=== PATIENT | female | born 1960 | race Caucasian/White ===

== ENCOUNTER 2018-06-15 01:15 | Observation (INO) | payer OTHER ==
[2018-06-15] VITALS (12 sets, daily range): BP systolic 104–156; BP diastolic 60–76; PULSE 65–90; RESP 18–20
[~2018-06-15] VITALS: Ht 167.4 cm; Wt 81.6 kg
[2018-06-15] MEDS ORDERED: CHOL500062 PO (02:51)
[2018-06-15] MEDS ORDERED: OMEG1CAP17 PO (02:51)
[2018-06-15] MEDS ORDERED: ENAL5TAB75 PO (02:51)
[2018-06-15] MEDS ORDERED: OMEP40CA6 PO (02:51)
[2018-06-15] MEDS ORDERED: ACET-2047 PO (02:51)
[2018-06-15] MEDS ORDERED: ATOR40TA68 PO (02:51)
[2018-06-15] MEDS ORDERED: NITR0.4T39 SL (02:51)
[2018-06-15] MEDS ORDERED: ASPI-817 PO (02:51)
[2018-06-15] MEDS ORDERED: ACETAMINOPHEN 325 MG TAB PO PRN ×2 (05:00)
[2018-06-15] MEDS ORDERED: NITROGLYCERIN (SL) 0.4 MG TAB SL PRN (05:00)
[2018-06-15] MEDS ORDERED: NACL 0.9% 3 ML SYG IV SCH (05:00)
[2018-06-15] MEDS ORDERED: HYDROCODONE/APAP (5/325) TAB PO PRN (05:00)
[2018-06-15] MEDS ORDERED: ALBUTEROL/IPRATROPIUM (NEB) 3 ML AMP HHN PRN (05:00)
[2018-06-15] MEDS ORDERED: ONDANSETRON 4 MG INJ IV PRN (05:00)
[2018-06-15] MEDS: PANTOPRAZOLE (EC) 40 MG TAB PO SCH (06:04)
--- NOTE | 2018-06-15 06:33 | HP ---
Date/Time of Note Date/Time of Note DATE: 06/15/18 TIME: 06:31 Assessment/Plan VTE Prophylaxis Risk score (from Nsg)>0 risk: 3 SCD applied (from Nsg): Yes Pharmacological prophylaxis: heparin Lines/Catheters IV Catheter Type (from Nrsg): Saline Lock Urinary Cath still in place: No Assessment/Plan Assessment/Plan 1. Chest pain: Rule out ACS -Supplemental oxygen, aspirin, statin, beta-shahzad. As needed nitro -Trend troponin -2D echo -Twelve-lead EKG -Cardiology consult -A1c, fasting lipid and TSH in a.m. 2. History of CVA, with right MCA thrombectomy -Aspirin and statin Result Diagram: 06/15/18 0541 Results 24hrs Laboratory Tests Test 06/15/18 05:41 White Blood Count 7.0 Red Blood Count 5.08 Hemoglobin 13.3 Hematocrit 41.6 Mean Corpuscular Volume 81.9 L Mean Corpuscular Hemoglobin 26.2 L Mean Corpuscular Hemoglobin Concent 32.0 Red Cell Distribution Width 13.1 Platelet Count 239 Mean Platelet Volume 10.6 H Immature Granulocytes % 0.100 Neutrophils % 54.6 Lymphocytes % 35.7 Monocytes % 7.3 Eosinophils % 1.7 Basophils % 0.6 Nucleated Red Blood Cells % 0.0 Immature Granulocytes # 0.010 Neutrophils # 3.8 Lymphocytes # 2.5 Monocytes # 0.5 Eosinophils # 0.1 Basophils # 0.0 Nucleated Red Blood Cells # 0.0 HPI/ROS Admit Date/Time Admit Date/Time Jun 15, 2018 at 02:04 Hx of Present Illness This is a 4-year-old female with a history of hypertension and CVA with history of right MCA thrombectomy. Patient presented to an outside hospital complaining of chest pain. The chest pain mainly left-sided, with occasional associated shortness of breath. At the outside facility EKG and troponin negative. Patient was transferred to [facility] for insurance reason. PMH/Family/Social Past Medical History Past Surgical History Past Surgical Hx: other (see hpi) Family History Significant Family History: other Social History Smoking Status: Unknown if ever smoked Drug Use: other Exam Constitutional: other (no acute distress) Eyes: EOMI, PERRL Neck: supple Respiratory: normal air movement Cardiovascular: nl pulses Gastrointestinal: soft Extremities: normal pulses Medications Current Medications IV Flush (NS 3 ml) 3 ml PER PROTOCOL IV ; Start 06/15/18 at 05:00 Ondansetron HCl (Zofran Inj) 4 mg Q6H PRN IV NAUSEA/VOMITING; Start 06/15/18 at 05:00 Aspirin (Aspirin) 81 mg DAILY PO ; Start 06/15/18 at 09:00 Nitroglycerin (Nitroglycerin (Sl Tab) 0.4 Mg) 1 tab Q5M PRN SL .CHEST PAIN; Start 06/15/18 at 05:00 Acetaminophen/ Hydrocodone Bitart ([place] (5/325)) 1 tab Q6H PRN PO .PAIN 4-6; Start 06/15/18 at 05:00 Enoxaparin Sodium (Lovenox) 40 mg DAILY SC ; Start 06/15/18 at 09:00 Albuterol/ Ipratropium (Duoneb) 3 ml Q2H RESP THERAPY PRN HHN SHORTNESS OF BREATH; Start 06/15/18 at 05:00 Metoprolol Tartrate (Lopressor) 25 mg BID PO ; Start 06/15/18 at 09:00 Acetaminophen (Tylenol Tab) 650 mg Q6H PRN PO MILD PAIN(1-3)OR ELEVATED TEMP; Start 06/15/18 at 05:00 Atorvastatin Calcium (Lipitor) 40 mg QHS PO ; Start 06/15/18 at 21:00 Enalapril Maleate (Vasotec) 5 mg DAILY PO ; Start 06/15/18 at 09:00 Fish Oil (Fish Oil) 1,000 mg DAILY PO ; Start 06/15/18 at 09:00 Pantoprazole (Protonix Tab) 40 mg DAILY@06 PO Last administered on 06/15/18at 06:04; Admin Dose 40 MG; Start 06/15/18 at 06:00 Coded Allergies: Estrogens (Verified Allergy, Intermediate, 06/15/18) honey (Verified Allergy, Intermediate, 06/15/18) peanut (Verified Allergy, Intermediate, 06/15/18) pollen extracts (Verified Allergy, Intermediate, 06/15/18) Social History Smoking Status: Never smoker Exam/Review of Systems Vital Signs Vitals Vital Signs Date Temp Pulse Resp B/P (MAP) Pulse Ox O2 O2 Flow FiO2 Time Delivery Rate 06/15/18 97.8 89 20 124/70 96 04:00 (88) 06/15/18 Room Air 02:15 PADMAJA ASIF MD Jun 15, 2018 06:33
[2018-06-15] MEDS: ASPIRIN 81 MG TAB PO SCH (08:12)
[2018-06-15] MEDS: FISH OIL 1,000 MG CAP PO SCH (08:12)
[2018-06-15] MEDS: METOPROLOL 25 MG TAB PO SCH ×2 (08:13→21:44)
[2018-06-15] MEDS: ENOXAPARIN 40 MG/0.4 ML SYG SC SCH (08:29)
[2018-06-15] MEDS: ENALAPRIL 5 MG TAB PO SCH (12:23)
--- NOTE | 2018-06-15 14:56 | PN ---
Date/Time of Note Date/Time of Note DATE: 06/15/18 TIME: 14:48 Assessment/Plan VTE Prophylaxis Risk score (from Ns)>0 risk: 3 SCD applied (from Ns): Yes Pharmacological prophylaxis: LMWH Lines/Catheters IV Catheter Type (from Nrsg): Saline Lock Urinary Cath still in place: No Assessment/Plan Assessment/Plan 1. Chest pain: Rule out ACS, follow up with troponin, echo, and cardiology consultation 2. History of CVA, with right MCA thrombectomy, on aspirin and statin 3. HTN, controlled 4. DVT prophylaxis: lovenox Result Diagram: 06/15/18 0541 06/15/18 0541 Results 24hrs Laboratory Tests Test 06/15/18 05:41 06/15/18 10:20 White Blood Count 7.0 Red Blood Count 5.08 Hemoglobin 13.3 Hematocrit 41.6 Mean Corpuscular Volume 81.9 L Mean Corpuscular Hemoglobin 26.2 L Mean Corpuscular Hemoglobin Concent 32.0 Red Cell Distribution Width 13.1 Platelet Count 239 Mean Platelet Volume 10.6 H Immature Granulocytes % 0.100 Neutrophils % 54.6 Lymphocytes % 35.7 Monocytes % 7.3 Eosinophils % 1.7 Basophils % 0.6 Nucleated Red Blood Cells % 0.0 Immature Granulocytes # 0.010 Neutrophils # 3.8 Lymphocytes # 2.5 Monocytes # 0.5 Eosinophils # 0.1 Basophils # 0.0 Nucleated Red Blood Cells # 0.0 Sodium Level 144 Potassium Level 4.0 Chloride Level 106 Carbon Dioxide Level 27 Anion Gap 11 Blood Urea Nitrogen 15 Creatinine 0.67 Est Glomerular Filtrat Rate mL/min > 60 Glucose Level 96 Hemoglobin A1c 5.6 Calcium Level 9.7 Magnesium Level 2.1 Total Bilirubin 0.6 Direct Bilirubin 0.00 Indirect Bilirubin 0.6 Aspartate Amino Transf (AST/SGOT) 25 Alanine Aminotransferase (ALT/SGPT) 27 Alkaline Phosphatase 86 Creatine Kinase 66 64 Creatine Kinase Index 0.3 0.3 Creatinine Kinase MB (Mass) < 0.22 < 0.22 Troponin I < 0.012 < 0.012 Total Protein 7.1 Albumin 4.3 Globulin 2.80 Albumin/Globulin Ratio 1.53 Triglycerides Level 144 Cholesterol Level 126 LDL Cholesterol, Calculated 60 HDL Cholesterol 37 Cholesterol/HDL Ratio 3.4 Thyroid Stimulating Hormone (TSH) 0.474 Subjective 24 Hr Interval Summary Free Text/Dictation left upper chest constant pain Exam/Review of Systems Exam Vitals Vital Signs Date Temp Pulse Resp B/P (MAP) Pulse Ox O2 O2 Flow FiO2 Time Delivery Rate 06/15/18 73 12:55 06/15/18 98.2 18 109/60 91 11:32 (76) 06/15/18 Room Air 02:15 Intake and Output 06/14/18 06/14/18 06/15/18 1414:59 22:59 06:59 IntakeIntake Total 300 ml BalanceBalance 300 ml Constitutional: alert, well developed Psych: no complaints, nl mood/affect Head: normocephalic, atraumatic Eyes: nl conjunctiva, EOMI, nl lids, PERRL ENMT: nl external ears & nose, nl lips & teeth, nl nasal mucosa & septum Neck: supple, non-tender Respiratory: clear to auscultation, normal air movement; No congested cough, No crackles/rales, No diminished breath sounds, No intercostal retraction, No labored breathing, No respirations, No tactile fremitus, No wheezing, No other Cardiovascular: regular rate and rhythm, nl pulses; No bruits, No diastolic murmur, No edema, No gallop, No irregular rhythm, No jugular venous distention (JVD), No murmurs/extra sounds, No rub, No systolic murmur, No S3, No S4, No other Gastrointestinal: soft, nl liver, spleen, non-tender Musculoskeletal: nl extremities to inspection Extremities: normal pulses; No calf tenderness, No cyanosis, No clubbing, No edema, No pitting pedal edema, No palpable cord, No tenderness, No other Neurological: [employer] II-XII intact, nl mental status, nl speech, nl strength Results Results 24hrs Laboratory Tests Test 06/15/18 05:41 06/15/18 10:20 White Blood Count 7.0 Red Blood Count 5.08 Hemoglobin 13.3 Hematocrit 41.6 Mean Corpuscular Volume 81.9 L Mean Corpuscular Hemoglobin 26.2 L Mean Corpuscular Hemoglobin Concent 32.0 Red Cell Distribution Width 13.1 Platelet Count 239 Mean Platelet Volume 10.6 H Immature Granulocytes % 0.100 Neutrophils % 54.6 Lymphocytes % 35.7 Monocytes % 7.3 Eosinophils % 1.7 Basophils % 0.6 Nucleated Red Blood Cells % 0.0 Immature Granulocytes # 0.010 Neutrophils # 3.8 Lymphocytes # 2.5 Monocytes # 0.5 Eosinophils # 0.1 Basophils # 0.0 Nucleated Red Blood Cells # 0.0 Sodium Level 144 Potassium Level 4.0 Chloride Level 106 Carbon Dioxide Level 27 Anion Gap 11 Blood Urea Nitrogen 15 Creatinine 0.67 Est Glomerular Filtrat Rate mL/min > 60 Glucose Level 96 Hemoglobin A1c 5.6 Calcium Level 9.7 Magnesium Level 2.1 Total Bilirubin 0.6 Direct Bilirubin 0.00 Indirect Bilirubin 0.6 Aspartate Amino Transf (AST/SGOT) 25 Alanine Aminotransferase (ALT/SGPT) 27 Alkaline Phosphatase 86 Creatine Kinase 66 64 Creatine Kinase Index 0.3 0.3 Creatinine Kinase MB (Mass) < 0.22 < 0.22 Troponin I < 0.012 < 0.012 Total Protein 7.1 Albumin 4.3 Globulin 2.80 Albumin/Globulin Ratio 1.53 Triglycerides Level 144 Cholesterol Level 126 LDL Cholesterol, Calculated 60 HDL Cholesterol 37 Cholesterol/HDL Ratio 3.4 Thyroid Stimulating Hormone (TSH) 0.474 Medications Medication Current Medications IV Flush (NS 3 ml) 3 ml PER PROTOCOL IV ; Start 06/15/18 at 05:00 Ondansetron HCl (Zofran Inj) 4 mg Q6H PRN IV NAUSEA/VOMITING; Start 06/15/18 at 05:00 Aspirin (Aspirin) 81 mg DAILY PO Last administered on 06/15/18at 08:12; Admin Dose 81 MG; Start 06/15/18 at 09:00 Nitroglycerin (Nitroglycerin (Sl Tab) 0.4 Mg) 1 tab Q5M PRN SL .CHEST PAIN; Start 06/15/18 at 05:00 Acetaminophen/ Hydrocodone Bitart ([place] (5/325)) 1 tab Q6H PRN PO .PAIN 4-6; Start 06/15/18 at 05:00 Enoxaparin Sodium (Lovenox) 40 mg DAILY SC Last administered on 06/15/18at 08:29; Admin Dose 40 MG; Start 06/15/18 at 09:00 Albuterol/ Ipratropium (Duoneb) 3 ml Q2H RESP THERAPY PRN HHN SHORTNESS OF BREATH; Start 06/15/18 at 05:00 Metoprolol Tartrate (Lopressor) 25 mg BID PO Last administered on 06/15/18at 08:13; Admin Dose 25 MG; Start 06/15/18 at 09:00 Acetaminophen (Tylenol Tab) 650 mg Q6H PRN PO MILD PAIN(1-3)OR ELEVATED TEMP; Start 06/15/18 at 05:00 Atorvastatin Calcium (Lipitor) 40 mg QHS PO ; Start 06/15/18 at 21:00 Enalapril Maleate (Vasotec) 5 mg DAILY PO ; Start 06/15/18 at 09:00 Fish Oil (Fish Oil) 1,000 mg DAILY PO Last administered on 06/15/18at 08:12; Admin Dose 1,000 MG; Start 06/15/18 at 09:00 Pantoprazole (Protonix Tab) 40 mg DAILY@06 PO Last administered on 06/15/18at 06:04; Admin Dose 40 MG; Start 06/15/18 at 06:00 JLUIS CHAO MD Jun 15, 2018 14:56
--- NOTE | 2018-06-15 17:33 | RADRPT ---
Echocardiogram Report Patient Name: AZEB KLEINPatient ID: [id number] : 1960 (58y )Study Date: 06/15/2018 10:04:37 AM Gender: FAccession #: [id number] Tech: JASMEET Location: Ref.Physician: PADMAJA ASIF Height(Cm): BSA: Weight(Kg): Quality: GoodAccount #: Procedures: Echocardiographic Report: Transthoracic echocardiogram with complete 2D, M-Mode, and doppler examination. Indications: Chest Pain. Measurements: 2D/M Mode Doppler Measurement Value Normal Range Measurement Value Normal Range LVIDd 2D 4.2 [ 3.8 - 5.2 ] cm JOHANA Vmax 2.1 [ 2.0 - 4.0 ] cm2 LVIDs 2D 2.9 [ 2.2 - 3.5 ] cm AV Mean Roshan 0.7 [ 70.0 - 90.0 ] cm/sec LVPWd 2D 1.1 [ 0.6 - 0.9 ] cm AV Mean PG 2.0 [ 2.0 - 4.0 ] mmHg IVSd 2D 1.1 [ 0.6 - 0.9 ] cm AV Peak Roshan 1.0 [ 100.0 - 170.0 ] cm/sec IVS/LVPW 2D 1.0 ratio AV Peak PG 4.0 [ 2.0 - 9.0 ] mmHg LVOT Area 2.8 cm2 AV VTI 19.3 cm LVOT Peak Roshan 0.8 [ 70.0 - 110.0 ] cm/sec LVOT Peak PG 2.0 [ 2.0 - 6.0 ] mmHg MV E Peak Roshan 0.4 [ 60.0 - 130.0 ] cm/sec MV A Peak Roshan 0.5 [ 100.0 - 120.0 ] cm/sec MV E/A 0.7 [ 0.8 - 1.5 ] ratio MV Decel Time 292 [ 104 - 258 ] msec Lat E` Roshan 0.1 [ 10.0 - 15.0 ] cm/sec Med E` Roshan 0.0 cm/sec MV E/A 0.7 [ 0.8 - 1.5 ] ratio TR Peak Roshan 1.9 [ 100.0 - 280.0 ] cm/sec TR Peak PG 15.0 mmHg PV Peak Roshan 0.6 [ 40.0 - 80.0 ] cm/sec PV Peak PG 1.0 mmHg Findings: Left Ventricle: Normal left ventricular systolic function. Normal left ventricular cavity size. Normal left ventricular wall thickness. Ejection fraction is visually estimated at 55-60 %. Tissue Doppler/Mitral Doppler indices are consistent with impaired relaxation (Stage I diastolic dysfunction). Right Ventricle: Normal right ventricular size. Normal right ventricular systolic function. Left Atrium: The left atrium is normal in size. Right Atrium: The right atrium is normal in size. Mitral Valve: Normal appearance and function of the mitral valve with trace physiologic regurgitation. Mild mitral annular calcification. Aortic Valve: Normal appearance of the aortic valve. No significant aortic stenosis or insufficiency. Tricuspid Valve: Normal appearance of the tricuspid valve. Estimated peak PA systolic pressure 20 mmHg. There is trace tricuspid regurgitation. Pulmonic Valve: Normal pulmonic valve appearance. There is trace pulmonic regurgitation. Pericardium: Normal pericardium with no significant pericardial effusion. Aorta: Normal aortic root. IVC: Normal size and normal respiratory collapse consistent with normal right atrial pressure. Conclusions: Normal left ventricular systolic function. Grade 1 diastolic dysfunction. Trace mitral, tricuspid, and pulmonic regurgitation. Normal pulmonary pressures. Electronically Signed By: Afia Oliveros 2018-06-15 17:32:12 PDT
--- NOTE | 2018-06-15 19:30 | CONS ---
Assessment/Plan Assessment/Plan Hospital Course (Demo Recall) 58 yo with acute chest pain, with recent CVA. Impression: Chest pain, atypical, lasting hours, with no ekg changes, no wall motion abnormalities, and normal troponins. Etiology is most likely gerd Chronic dyspnea since CVA Possible ASD Hypertension, with enalapril held for a sbp of 109 (!) Recommendations: Observe overnight Dr. Fulton to see patient in the am No indication for stress testing Monitor bp and I will clarify hold parameters Consultation Date/Type/Reason Admit Date/Time Jun 15, 2018 at 02:04 Date of Consultation: Jun 15, 2018 Type of Consult Cardiology Reason for Consultation chest pain Requesting Provider: SHEILA STARK Date/Time of Note DATE: 06/15/18 TIME: 19:22 Hx of Present Illness 58 yo with h/o CVA in 04/2018 presents with chest pain. Pain was all day yesterday, was a burning sensation, constant. Pain is still present to some degree but is much less. She has had this pain on and off, it occurred while she was in the hospital at [facility] with her CVA, and has recurred at home, but has not had any episodes this long. She took three nitroglycerin tablets at home with no improvement. Since the cva, she is tired, and more short of breath with exertion than before the CVA. She saw Dr. Roel Alfonso in the office a few weeks ago, son says that she was told she has an ASD and needs to have it closed. Also of note her bp has been high at times at home and associated with a fast heart rate. PCP is Aleks Waddell Constitutional: no complaints Eyes: no complaints ENT: no complaints Respiratory: shortness of breath Cardiovascular: chest pain, lightheadedness Gastrointestinal: no complaints Genitourinary: no complaints Musculoskeletal: no complaints Skin: no complaints Neurologic: dizziness Endocrine: no complaints Lymphatic: no complaints Psychological: no complaints Past Medical History Medical History: high cholesterol, hypertension, other (CVA 04/2018) Home Meds Reported Medications Acetaminophen* (Acetaminophen*) 650 Mg Tablet, 650 MG PO Q6H PRN for PAIN AND OR ELEVATED TEMP, #30 TAB 06/15/18 Cholecalciferol (Vitamin D3) (Vitamin D3) 5,000 Unit Tab.rapdis, 5000 UNIT PO DAILY 06/15/18 Nitroglycerin* (Nitrostat*) 0.4 Mg Tab.subl, 0.4 MG SL Q5MIN PRN for CHEST PAIN, BOTTLE 06/15/18 Omeprazole* (Omeprazole*) 40 Mg Capsule.dr, 40 MG PO DAILY, #30 CAP 06/15/18 [place]-3 Fatty Acids/Fish Oil (Fish Oil 1,000 mg Softgel) 1 Each Capsule, 1 EACH PO DAILY, CAP 06/15/18 Enalapril Maleate* (Vasotec*) 5 Mg Tablet, 5 MG PO DAILY, TAB 06/15/18 Atorvastatin* (Atorvastatin*) 40 Mg Tablet, 40 MG PO QHS, #30 TAB 06/15/18 Aspirin* (Aspirin* EC) 81 Mg Tablet.dr, 81 MG PO DAILY, TAB 06/15/18 Medications Current Medications IV Flush (NS 3 ml) 3 ml PER PROTOCOL IV ; Start 06/15/18 at 05:00 Ondansetron HCl (Zofran Inj) 4 mg Q6H PRN IV NAUSEA/VOMITING; Start 06/15/18 at 05:00 Aspirin (Aspirin) 81 mg DAILY PO Last administered on 06/15/18at 08:12; Admin Do se 81 MG; Start 06/15/18 at 09:00 Nitroglycerin (Nitroglycerin (Sl Tab) 0.4 Mg) 1 tab Q5M PRN SL .CHEST PAIN; Start 06/15/18 at 05:00 Acetaminophen/ Hydrocodone Bitart ([place] (5/325)) 1 tab Q6H PRN PO .PAIN 4-6; Start 06/15/18 at 05:00 Enoxaparin Sodium (Lovenox) 40 mg DAILY SC Last administered on 06/15/18at 08:29; Admin Dose 40 MG; Start 06/15/18 at 09:00 Albuterol/ Ipratropium (Duoneb) 3 ml Q2H RESP THERAPY PRN HHN SHORTNESS OF BREATH; Start 06/15/18 at 05:00 Metoprolol Tartrate (Lopressor) 25 mg BID PO Last administered on 06/15/18at 08:13; Admin Dose 25 MG; Start 06/15/18 at 09:00 Acetaminophen (Tylenol Tab) 650 mg Q6H PRN PO MILD PAIN(1-3)OR ELEVATED TEMP; Start 06/15/18 at 05:00 Atorvastatin Calcium (Lipitor) 40 mg QHS PO ; Start 06/15/18 at 21:00 Enalapril Maleate (Vasotec) 5 mg DAILY PO ; Start 06/15/18 at 09:00 Fish Oil (Fish Oil) 1,000 mg DAILY PO Last administered on 06/15/18at 08:12; Admin Dose 1,000 MG; Start 06/15/18 at 09:00 Pantoprazole (Protonix Tab) 40 mg DAILY@06 PO Last administered on 06/15/18at 06:04; Admin Dose 40 MG; Start 06/15/18 at 06:00 Allergies: Coded Allergies: Estrogens (Verified Allergy, Intermediate, 06/15/18) honey (Verified Allergy, Intermediate, 06/15/18) peanut (Verified Allergy, Intermediate, 06/15/18) pollen extracts (Verified Allergy, Intermediate, 06/15/18) Family History Significant Family History: no pertinent family hx Social History Alcohol Use: none Smoking Status: Never smoker Drug Use: none Exam/Review of Systems Vital Signs Vitals Vital Signs Date Temp Pulse Resp B/P (MAP) Pulse Ox O2 O2 Flow FiO2 Time Delivery Rate 06/15/18 65 16:12 06/15/18 97.9 18 104/60 95 15:40 (75) 06/15/18 Room Air 02:15 Intake and Output 06/14/18 06/14/18 06/15/18 1515:00 23:00 07:00 IntakeIntake Total 300 ml BalanceBalance 300 ml Exam Constitutional: alert, oriented, well developed, other Psych: no complaints, other (flat affect) Head: normocephalic, atraumatic Eyes: nl conjunctiva, EOMI, nl lids ENMT: nl external ears & nose Neck: No jvd, No bruits Respiratory: clear to auscultation, normal air movement Cardiovascular: regular rate and rhythm, nl pulses; No murmurs/extra sounds Gastrointestinal: soft, nl liver, spleen, non-tender Musculoskeletal: nl extremities to inspection Extremities: normal pulses Neurological: nl mental status, nl speech Skin: nl turgor Labs Result Diagram: 06/15/18 0541 06/15/18 0541 Results 24hrs Laboratory Tests Test 06/15/18 05:41 06/15/18 10:20 White Blood Count 7.0 Red Blood Count 5.08 Hemoglobin 13.3 Hematocrit 41.6 Mean Corpuscular Volume 81.9 L Mean Corpuscular Hemoglobin 26.2 L Mean Corpuscular Hemoglobin Concent 32.0 Red Cell Distribution Width 13.1 Platelet Count 239 Mean Platelet Volume 10.6 H Immature Granulocytes % 0.100 Neutrophils % 54.6 Lymphocytes % 35.7 Monocytes % 7.3 Eosinophils % 1.7 Basophils % 0.6 Nucleated Red Blood Cells % 0.0 Immature Granulocytes # 0.010 Neutrophils # 3.8 Lymphocytes # 2.5 Monocytes # 0.5 Eosinophils # 0.1 Basophils # 0.0 Nucleated Red Blood Cells # 0.0 Sodium Level 144 Potassium Level 4.0 Chloride Level 106 Carbon Dioxide Level 27 Anion Gap 11 Blood Urea Nitrogen 15 Creatinine 0.67 Est Glomerular Filtrat Rate mL/min > 60 Glucose Level 96 Hemoglobin A1c 5.6 Calcium Level 9.7 Magnesium Level 2.1 Total Bilirubin 0.6 Direct Bilirubin 0.00 Indirect Bilirubin 0.6 Aspartate Amino Transf (AST/SGOT) 25 Alanine Aminotransferase (ALT/SGPT) 27 Alkaline Phosphatase 86 Creatine Kinase 66 64 Creatine Kinase Index 0.3 0.3 Creatinine Kinase MB (Mass) < 0.22 < 0.22 Troponin I < 0.012 < 0.012 Total Protein 7.1 Albumin 4.3 Globulin 2.80 Albumin/Globulin Ratio 1.53 Triglycerides Level 144 Cholesterol Level 126 LDL Cholesterol, Calculated 60 HDL Cholesterol 37 Cholesterol/HDL Ratio 3.4 Thyroid Stimulating Hormone (TSH) 0.474 Imaging Imaging nsr at 72 bpm, borderline prolonged QT Echo with NSR, no wall motion abnormalities Medications Medications Current Medications IV Flush (NS 3 ml) 3 ml PER PROTOCOL IV ; Start 06/15/18 at 05:00 Ondansetron HCl (Zofran Inj) 4 mg Q6H PRN IV NAUSEA/VOMITING; Start 06/15/18 at 05:00 Aspirin (Aspirin) 81 mg DAILY PO Last administered on 06/15/18at 08:12; Admin Dose 81 MG; Start 06/15/18 at 09:00 Nitroglycerin (Nitroglycerin (Sl Tab) 0.4 Mg) 1 tab Q5M PRN SL .CHEST PAIN; Start 06/15/18 at 05:00 Acetaminophen/ Hydrocodone Bitart ([place] (5/325)) 1 tab Q6H PRN PO .PAIN 4-6; Start 06/15/18 at 05:00 Enoxaparin Sodium (Lovenox) 40 mg DAILY SC Last administered on 06/15/18at 08:29; Admin Dose 40 MG; Start 06/15/18 at 09:00 Albuterol/ Ipratropium (Duoneb) 3 ml Q2H RESP THERAPY PRN HHN SHORTNESS OF BREATH; Start 06/15/18 at 05:00 Metoprolol Tartrate (Lopressor) 25 mg BID PO Last administered on 06/15/18at 08:13; Admin Dose 25 MG; Start 06/15/18 at 09:00 Acetaminophen (Tylenol Tab) 650 mg Q6H PRN PO MILD PAIN(1-3)OR ELEVATED TEMP; Start 06/15/18 at 05:00 Atorvastatin Calcium (Lipitor) 40 mg QHS PO ; Start 06/15/18 at 21:00 Enalapril Maleate (Vasotec) 5 mg DAILY PO ; Start 06/15/18 at 09:00 Fish Oil (Fish Oil) 1,000 mg DAILY PO Last administered on 06/15/18at 08:12; Admin Dose 1,000 MG; Start 06/15/18 at 09:00 Pantoprazole (Protonix Tab) 40 mg DAILY@06 PO Last administered on 06/15/18at 06:04; Admin Dose 40 MG; Start 06/15/18 at 06:00 KENDALL MOORE Jun 15, 2018 19:30
[2018-06-15] MEDS ORDERED: ATORVASTATIN 40 MG TAB PO SCH (21:00)
[2018-06-15] MEDS: ATORVASTATIN 40 MG TAB PO SCH (21:39)
[2018-06-16] VITALS (11 sets, daily range): BP systolic 100–127; BP diastolic 58–71; PULSE 67–109; RESP 19–22
[2018-06-16] MEDS: PANTOPRAZOLE (EC) 40 MG TAB PO SCH (05:40)
[2018-06-16] MEDS: ASPIRIN 81 MG TAB PO SCH (08:17)
[2018-06-16] MEDS: FISH OIL 1,000 MG CAP PO SCH (08:17)
[2018-06-16] MEDS: METOPROLOL 25 MG TAB PO SCH ×2 (08:19→21:00)
[2018-06-16] MEDS: ENALAPRIL 5 MG TAB PO SCH (08:19)
[2018-06-16] MEDS: ENOXAPARIN 40 MG/0.4 ML SYG SC SCH (08:28)
--- NOTE | 2018-06-16 15:13 | PN ---
Date/Time of Note Date/Time of Note DATE: 06/16/18 TIME: 15:10 Assessment/Plan VTE Prophylaxis Risk score (from Ns)>0 risk: 3 SCD applied (from Ns): Yes Pharmacological prophylaxis: LMWH Lines/Catheters IV Catheter Type (from Nrs): Saline Lock Urinary Cath still in place: No Assessment/Plan Assessment/Plan 1. Chest pain, atypical with chest wall tenderness, likely musculoskeletal, negative troponin, follow up with cardiology 2. History of CVA, with right MCA thrombectomy, on aspirin and statin 3. HTN, controlled 4. DVT prophylaxis: lovenox Result Diagram: 06/16/1852606/16/18526 Results 24hrs Laboratory Tests Test 06/16/18 05:27 White Blood Count 6.9 Red Blood Count 5.12 Hemoglobin 13.4 Hematocrit 42.4 Mean Corpuscular Volume 82.8 Mean Corpuscular Hemoglobin 26.2 L Mean Corpuscular Hemoglobin Concent 31.6 L Red Cell Distribution Width 13.0 Platelet Count 255 Mean Platelet Volume 10.7 H Immature Granulocytes % 0.300 Neutrophils % 56.9 Lymphocytes % 31.6 Monocytes % 8.4 Eosinophils % 2.2 Basophils % 0.6 Nucleated Red Blood Cells % 0.0 Immature Granulocytes # 0.020 Neutrophils # 4.0 Lymphocytes # 2.2 Monocytes # 0.6 Eosinophils # 0.2 Basophils # 0.0 Nucleated Red Blood Cells # 0.0 Sodium Level 144 Potassium Level 3.8 Chloride Level 103 Carbon Dioxide Level 28 Anion Gap 13 Blood Urea Nitrogen 27 #H Creatinine 0.93 Est Glomerular Filtrat Rate mL/min > 60 Glucose Level 100 Calcium Level 9.7 Phosphorus Level 5.2 H Magnesium Level 2.1 Subjective 24 Hr Interval Summary Free Text/Dictation still has left upper chest pain, worse when she takes deep breath Exam/Review of Systems Exam Vitals Vital Signs Date Temp Pulse Resp B/P (MAP) Pulse Ox O2 O2 Flow FiO2 Time Delivery Rate 06/16/18 97.8 78 22 112/58 96 Room Air 12:40 (76) Intake and Output 06/15/18 06/15/18 06/16/18 1515:00 23:00 07:00 IntakeIntake Total 700 ml 400 ml BalanceBalance 700 ml 400 ml Constitutional: alert, oriented, well developed Psych: no complaints, nl mood/affect Head: normocephalic, atraumatic Eyes: nl conjunctiva, EOMI, nl lids, nl sclera, PERRL ENMT: nl external ears & nose, nl lips & teeth, nl nasal mucosa & septum Neck: supple, non-tender Respiratory: clear to auscultation, normal air movement; No congested cough, No crackles/rales, No diminished breath sounds, No intercostal retraction, No labored breathing, No respirations, No tactile fremitus, No wheezing, No other Cardiovascular: regular rate and rhythm, nl pulses; No bruits, No diastolic murmur, No edema, No gallop, No irregular rhythm, No jugular venous distention (JVD), No murmurs/extra sounds, No rub, No systolic murmur, No S3, No S4, No other Gastrointestinal: soft, nl liver, spleen, non-tender Musculoskeletal: nl extremities to inspection Extremities: normal pulses Neurological: WOOD [employer]OL [employer]ER II-XII intact, nl mental status, nl speech, nl strength Results Results 24hrs Laboratory Tests Test 06/16/18 05:27 White Blood Count 6.9 Red Blood Count 5.12 Hemoglobin 13.4 Hematocrit 42.4 Mean Corpuscular Volume 82.8 Mean Corpuscular Hemoglobin 26.2 L Mean Corpuscular Hemoglobin Concent 31.6 L Red Cell Distribution Width 13.0 Platelet Count 255 Mean Platelet Volume 10.7 H Immature Granulocytes % 0.300 Neutrophils % 56.9 Lymphocytes % 31.6 Monocytes % 8.4 Eosinophils % 2.2 Basophils % 0.6 Nucleated Red Blood Cells % 0.0 Immature Granulocytes # 0.020 Neutrophils # 4.0 Lymphocytes # 2.2 Monocytes # 0.6 Eosinophils # 0.2 Basophils # 0.0 Nucleated Red Blood Cells # 0.0 Sodium Level 144 Potassium Level 3.8 Chloride Level 103 Carbon Dioxide Level 28 Anion Gap 13 Blood Urea Nitrogen 27 #H Creatinine 0.93 Est Glomerular Filtrat Rate mL/min > 60 Glucose Level 100 Calcium Level 9.7 Phosphorus Level 5.2 H Magnesium Level 2.1 Medications Medication Current Medications IV Flush (NS 3 ml) 3 ml PER PROTOCOL IV ; Start 06/15/18 at 05:00 Ondansetron HCl (Zofran Inj) 4 mg Q6H PRN IV NAUSEA/VOMITING; Start 06/15/18 at 05:00 Aspirin (Aspirin) 81 mg DAILY PO Last administered on 06/16/18 08:17; Admin Dose 81 MG; Start 06/15/18 at 09:00 Nitroglycerin (Nitroglycerin (Sl Tab) 0.4 Mg) 1 tab Q5M PRN SL .CHEST PAIN; Start 06/15/18 at 05:00 Acetaminophen/ Hydrocodone Bitart ([place] (5/325)) 1 tab Q6H PRN PO .PAIN 4-6; Start 06/15/18 at 05:00 Enoxaparin Sodium (Lovenox) 40 mg DAILY SC Last administered on 06/16/18 08:28; Admin Dose 40 MG; Start 06/15/18 at 09:00 Albuterol/ Ipratropium (Duoneb) 3 ml Q2H RESP THERAPY PRN HHN SHORTNESS OF BREATH; Start 06/15/18 at 05:00 Metoprolol Tartrate (Lopressor) 25 mg BID PO Last administered on 06/16/18 08:19; Admin Dose 25 MG; Start 06/15/18 at 09:00 Acetaminophen (Tylenol Tab) 650 mg Q6H PRN PO MILD PAIN(1-3)OR ELEVATED TEMP; Start 06/15/18 at 05:00 Atorvastatin Calcium (Lipitor) 40 mg QHS PO Last administered on 06/15/18at 21:39; Admin Dose 40 MG; Start 06/15/18 at 21:00 Enalapril Maleate (Vasotec) 5 mg DAILY PO Last administered on 06/16/18 08:19; Admin Dose 5 MG; Start 06/15/18 at 09:00 Fish Oil (Fish Oil) 1,000 mg DAILY PO Last administered on 06/16/18 08:17; Admin Dose 1,000 MG; Start 06/15/18 at 09:00 Pantoprazole (Protonix Tab) 40 mg DAILY@06 PO Last administered on 06/16/18 05:40; Admin Dose 40 MG; Start 06/15/18 at 06:00 JLUIS CHAO MD Jun 16, 2018 15:13
--- NOTE | 2018-06-16 15:48 | CONS ---
Assessment/Plan Assessment/Plan Hospital Course (Demo Recall) IMP: 1.chest pain-No trop x 3/NL EF 2.HTN 3.sob-assess for CHF 4. H/O CVA 6.Possible ASD Recc: -Tele -Continue asa -Contineu ACEI/BB -Continue statin -Fish oil Consultation Date/Type/Reason Admit Date/Time Jun 15, 2018 at 02:04 Initial Consult Date 06/15/18 Type of Consult Cardiology Reason for Consultation chest pain/sob Requesting Provider: SHEILA SATRK Date/Time of Note DATE: 06/16/18 TIME: 15:42 Exam/Review of Systems Vital Signs Vitals Vital Signs Date Temp Pulse Resp B/P (MAP) Pulse Ox O2 O2 Flow FiO2 Time Delivery Rate 06/16/18 97.8 78 22 112/58 96 Room Air 12:40 (76) Intake and Output 06/15/18 06/15/18 06/16/18 1515:00 23:00 07:00 IntakeIntake Total 700 ml 400 ml BalanceBalance 700 ml 400 ml Exam Exam Review of Systems: CONSTITUTIONAL: No fevers, chills. PULMONARY: No sob CARDIOVASCULAR: No chest pain/palpitations GASTROINTESTINAL: No nausea/vomiting. GENITOURINARY: No hematuria/dysuria. MUSCULOSKELETAL: No myagias/arthalgias. PSYCHIATRIC: The patient denies depression. NEUROLOGIC: No weakness Constitutional: alert Psych: no complaints Head: normocephalic ENMT: mucosa pink and moist Neck: supple, jvd Respiratory: diminished breath sounds Cardiovascular: regular rate and rhythm Gastrointestinal: soft, non-tender Musculoskeletal: muscle tone (normal) Extremities: edema (none) Neurological: other (No gfocal deficits) Labs Result Diagram: 06/16/1852606/16/18526 Results 24hrs Laboratory Tests Test 06/16/18 05:27 White Blood Count 6.9 Red Blood Count 5.12 Hemoglobin 13.4 Hematocrit 42.4 Mean Corpuscular Volume 82.8 Mean Corpuscular Hemoglobin 26.2 L Mean Corpuscular Hemoglobin Concent 31.6 L Red Cell Distribution Width 13.0 Platelet Count 255 Mean Platelet Volume 10.7 H Immature Granulocytes % 0.300 Neutrophils % 56.9 Lymphocytes % 31.6 Monocytes % 8.4 Eosinophils % 2.2 Basophils % 0.6 Nucleated Red Blood Cells % 0.0 Immature Granulocytes # 0.020 Neutrophils # 4.0 Lymphocytes # 2.2 Monocytes # 0.6 Eosinophils # 0.2 Basophils # 0.0 Nucleated Red Blood Cells # 0.0 Sodium Level 144 Potassium Level 3.8 Chloride Level 103 Carbon Dioxide Level 28 Anion Gap 13 Blood Urea Nitrogen 27 #H Creatinine 0.93 Est Glomerular Filtrat Rate mL/min > 60 Glucose Level 100 Calcium Level 9.7 Phosphorus Level 5.2 H Magnesium Level 2.1 Medications Medications Current Medications IV Flush (NS 3 ml) 3 ml PER PROTOCOL IV ; Start 06/15/18 at 05:00 Ondansetron HCl (Zofran Inj) 4 mg Q6H PRN IV NAUSEA/VOMITING; Start 06/15/18 at 05:00 Aspirin (Aspirin) 81 mg DAILY PO Last administered on 06/16/18at 08:17; Admin Dose 81 MG; Start 06/15/18 at 09:00 Nitroglycerin (Nitroglycerin (Sl Tab) 0.4 Mg) 1 tab Q5M PRN SL .CHEST PAIN; Start 06/15/18 at 05:00 Acetaminophen/ Hydrocodone Bitart ([place] (5/325)) 1 tab Q6H PRN PO .PAIN 4-6; Start 06/15/18 at 05:00 Enoxaparin Sodium (Lovenox) 40 mg DAILY SC Last administered on 06/16/18at 08:28; Admin Dose 40 MG; Start 06/15/18 at 09:00 Albuterol/ Ipratropium (Duoneb) 3 ml Q2H RESP THERAPY PRN HHN SHORTNESS OF BREATH; Start 06/15/18 at 05:00 Metoprolol Tartrate (Lopressor) 25 mg BID PO Last administered on 06/16/18at 08:19; Admin Dose 25 MG; Start 06/15/18 at 09:00 Acetaminophen (Tylenol Tab) 650 mg Q6H PRN PO MILD PAIN(1-3)OR ELEVATED TEMP; Start 06/15/18 at 05:00 Atorvastatin Calcium (Lipitor) 40 mg QHS PO Last administered on 06/15/18at 21:39; Admin Dose 40 MG; Start 06/15/18 at 21:00 Enalapril Maleate (Vasotec) 5 mg DAILY PO Last administered on 06/16/18at 08:19; Admin Dose 5 MG; Start 06/15/18 at 09:00 Fish Oil (Fish Oil) 1,000 mg DAILY PO Last administered on 06/16/18at 08:17; Admin Dose 1,000 MG; Start 06/15/18 at 09:00 Pantoprazole (Protonix Tab) 40 mg DAILY@06 PO Last administered on 06/16/18at 05:40; Admin Dose 40 MG; Start 06/15/18 at 06:00 AMEYA ELIAS Jun 16, 2018 15:48
[2018-06-16] MEDS: ATORVASTATIN 40 MG TAB PO SCH (22:51)
[2018-06-17] VITALS (9 sets, daily range): BP systolic 107–127; BP diastolic 59–82; PULSE 56–92; RESP 20–22
[2018-06-17] MEDS: PANTOPRAZOLE (EC) 40 MG TAB PO SCH (05:34)
[2018-06-17] MEDS: ENALAPRIL 5 MG TAB PO SCH (08:45)
[2018-06-17] MEDS: FISH OIL 1,000 MG CAP PO SCH (08:45)
[2018-06-17] MEDS: ASPIRIN 81 MG TAB PO SCH (08:45)
[2018-06-17] MEDS: METOPROLOL 25 MG TAB PO SCH (08:45)
[2018-06-17] MEDS: ENOXAPARIN 40 MG/0.4 ML SYG SC SCH (09:28)
--- NOTE | 2018-06-17 12:54 | CONS ---
Assessment/Plan Assessment/Plan Hospital Course (Demo Recall) IMP: 1.chest pain-No trop x 3/NL EF 2.HTN 3.sob-assess for CHF 4. H/O CVA 6.Possible ASD Recc: -Tele -Continue asa -Contineu ACEI/BB -Continue statin -Fish oil -lexiscan stress test today and if negative then patient will be ok for d/c from cardiac standpoint Consultation Date/Type/Reason Admit Date/Time Jun 15, 2018 at 02:04 Initial Consult Date 06/15/18 Type of Consult Cardiology Reason for Consultation chest pain Requesting Provider: SHEILA STARK Date/Time of Note DATE: 06/17/18 TIME: 12:52 Exam/Review of Systems Vital Signs Vitals Vital Signs Date Temp Pulse Resp B/P (MAP) Pulse Ox O2 O2 Flow FiO2 Time Delivery Rate 06/17/18 72 12:13 06/17/18 98.0 120/59 Room Air 11:56 (79) 06/17/18 22 96 07:58 Intake and Output 06/16/18 06/16/18 06/17/18 1515:00 23:00 07:00 IntakeIntake Total 860 ml 300 ml BalanceBalance 860 ml 300 ml Exam Exam Review of Systems: CONSTITUTIONAL: No fevers, chills. PULMONARY: No sob CARDIOVASCULAR: intermittent chest pain GASTROINTESTINAL: No nausea/vomiting. GENITOURINARY: No hematuria/dysuria. MUSCULOSKELETAL: No myagias/arthalgias. PSYCHIATRIC: The patient denies depression. NEUROLOGIC: No weakness Constitutional: alert Psych: no complaints Head: normocephalic ENMT: mucosa pink and moist Neck: supple, jvd Respiratory: diminished breath sounds (at bases/B) Cardiovascular: regular rate and rhythm Gastrointestinal: soft, non-tender Musculoskeletal: muscle tone (normal) Extremities: edema (none) Neurological: other (NO focal deficits) Labs Result Diagram: 06/16/1852606/16/18526 Medications Medications Current Medications IV Flush (NS 3 ml) 3 ml PER PROTOCOL IV ; Start 06/15/18 at 05:00 Ondansetron HCl (Zofran Inj) 4 mg Q6H PRN IV NAUSEA/VOMITING; Start 06/15/18 at 05:00 Aspirin (Aspirin) 81 mg DAILY PO Last administered on 06/17/18 08:45; Admin Dose 81 MG; Start 06/15/18 at 09:00 Nitroglycerin (Nitroglycerin (Sl Tab) 0.4 Mg) 1 tab Q5M PRN SL .CHEST PAIN; Start 06/15/18 at 05:00 Acetaminophen/ Hydrocodone Bitart ([place] (5/325)) 1 tab Q6H PRN PO .PAIN 4-6; Start 06/15/18 at 05:00 Enoxaparin Sodium (Lovenox) 40 mg DAILY SC Last administered on 06/17/18 09:28; Admin Dose 40 MG; Start 06/15/18 at 09:00 Albuterol/ Ipratropium (Duoneb) 3 ml Q2H RESP THERAPY PRN HHN SHORTNESS OF BREATH; Start 06/15/18 at 05:00 Metoprolol Tartrate (Lopressor) 25 mg BID PO Last administered on 06/17/18 08:45; Admin Dose 25 MG; Start 06/15/18 at 09:00 Acetaminophen (Tylenol Tab) 650 mg Q6H PRN PO MILD PAIN(1-3)OR ELEVATED TEMP; Start 06/15/18 at 05:00 Atorvastatin Calcium (Lipitor) 40 mg QHS PO Last administered on 06/16/18 22:51; Admin Dose 40 MG; Start 06/15/18 at 21:00 Enalapril Maleate (Vasotec) 5 mg DAILY PO Last administered on 06/17/18 08:45; Admin Dose 5 MG; Start 06/15/18 at 09:00 Fish Oil (Fish Oil) 1,000 mg DAILY PO Last administered on 06/17/18 08:45; Admin Dose 1,000 MG; Start 06/15/18 at 09:00 Pantoprazole (Protonix Tab) 40 mg DAILY@06 PO Last administered on 06/17/18 05:34; Admin Dose 40 MG; Start 06/15/18 at 06:00 AMEYA ELIAS Jun 17, 2018 12:54
[2018-06-17] MEDS ORDERED: REGADENOSON 0.4 MG/5 ML SYG ONE (13:32)
--- NOTE | 2018-06-17 15:27 | DS ---
Date/Time of Note Date/Time of Note DATE: 06/17/18 TIME: 15:21 Discharge Summary Admission/Discharge Info Admit Date/Time Jun 15, 2018 at 02:04 Discharge Date/Time Discharge Diagnosis 1. Chest pain, atypical with chest wall tenderness, likely musculoskeletal, negative troponin, stress test follow up with cardiology 2. History of CVA, with right MCA thrombectomy, on aspirin and statin 3. HTN, controlled Patient Condition: Stable Hospital Course 58 yo with h/o CVA in 04/2018 presents with chest pain. Pain was all day yesterday, was a burning sensation, constant. Pain is still present to some d egree but is much less. She has had this pain on and off, it occurred while she was in the hospital at [facility] with her CVA, and has recurred at home, but has not had any episodes this long. She took three nitroglycerin tablets at home with no improvement. Since the cva, she is tired, and more short of breath with exertion than before the CVA. She saw Dr. Roel Alfonso in the office a few weeks ago, son says that she was told she has an ASD and needs to have it closed. For chest pain, it is located at left upper chest with local tenderness. Troponin is negative, stress thallium test done on 06/17/2018. The chest pain is considered musculoskeletal that she is instructed to take tylenol or motrin as needed. Repeated echocardiography does not report ASD, PASP 20 mmHg. Patient will follow up with his own senior information developer outpatient to clarify this issue. Echocardiogram Report Patient Name: AZEB KLEIN : 1960 (58y ) Study Date: 06/15/2018 10:04:37 AM Gender: F Tech: Location: Ref.Physician: PADMAJA ASIF Height(Cm): BSA: Weight(Kg): Quality: Good Account #: Procedures: Echocardiographic Report: Transthoracic echocardiogram with complete 2D, M-Mode, and doppler examination. Indications: Chest Pain. Measurements: 2D/M Mode Doppler Measurement Value Normal Range Measurement Value Normal Range LVIDd 2D 4.2 [ 3.8 - 5.2 ] cm JOHANA Vmax 2.1 [ 2.0 - 4.0 ] cm2 LVIDs 2D 2.9 [ 2.2 - 3.5 ] cm AV Mean Roshan 0.7 [ 70.0 - 90.0 ] cm/sec LVPWd 2D 1.1 [ 0.6 - 0.9 ] cm AV Mean PG 2.0 [ 2.0 - 4.0 ] mmHg IVSd 2D 1.1 [ 0.6 - 0.9 ] cm AV Peak Roshan 1.0 [ 100.0 - 170.0 ] cm/sec IVS/LVPW 2D 1.0 ratio AV Peak PG 4.0 [ 2.0 - 9.0 ] mmHg LVOT Area 2.8 cm2 AV VTI 19.3 cm LVOT Peak Roshan 0.8 [ 70.0 - 110.0 ] cm/sec LVOT Peak PG 2.0 [ 2.0 - 6.0 ] mmHg MV E Peak Roshan 0.4 [ 60.0 - 130.0 ] cm/sec MV A Peak Roshan 0.5 [ 100.0 - 120.0 ] cm/sec MV E/A 0.7 [ 0.8 - 1.5 ] ratio MV Decel Time 292 [ 104 - 258 ] msec Lat E` Roshan 0.1 [ 10.0 - 15.0 ] cm/sec Med E` Roshan 0.0 cm/sec MV E/A 0.7 [ 0.8 - 1.5 ] ratio TR Peak Roshan 1.9 [ 100.0 - 280.0 ] cm/sec TR Peak PG 15.0 mmHg PV Peak Roshan 0.6 [ 40.0 - 80.0 ] cm/sec PV Peak PG 1.0 mmHg Findings: Left Ventricle: Normal left ventricular systolic function. Normal left ventricular cavity size. Normal left ventricular wall thickness. Ejection fraction is visually estimated at 55-60 %. Tissue Doppler/Mitral Doppler indices are consistent with impaired relaxation (Stage I diastolic dysfunction). Right Ventricle: Normal right ventricular size. Normal right ventricular systolic function. Left Atrium: The left atrium is normal in size. Right Atrium: The right atrium is normal in size. Mitral Valve: Normal appearance and function of the mitral valve with trace physiologic regurgitation. Mild mitral annular calcification. Aortic Valve: Normal appearance of the aortic valve. No significant aortic stenosis or insufficiency. Tricuspid Valve: Normal appearance of the tricuspid valve. Estimated peak PA systolic pressure 20 mmHg. There is trace tricuspid regurgitation. Pulmonic Valve: Normal pulmonic valve appearance. There is trace pulmonic regurgitation. Pericardium: Normal pericardium with no significant pericardial effusion. Aorta: Normal aortic root. IVC: Normal size and normal respiratory collapse consistent with normal right atrial pressure. Conclusions: Normal left ventricular systolic function. Grade 1 diastolic dysfunction. Trace mitral, tricuspid, and pulmonic regurgitation. Normal pulmonary pressures. Electronically Signed By: Afia Wootenelizabeth 2018-06-15 17:32:12 PDT Home Meds Reported Medications Acetaminophen* (Acetaminophen*) 650 Mg Tablet, 650 MG PO Q6H PRN for PAIN AND OR ELEVATED TEMP, #30 TAB 06/15/18 Cholecalciferol (Vitamin D3) (Vitamin D3) 5,000 Unit Tab.rapdis, 5000 UNIT PO DAILY 06/15/18 Nitroglycerin* (Nitrostat*) 0.4 Mg Tab.subl, 0.4 MG SL Q5MIN PRN for CHEST PAIN, BOTTLE 06/15/18 Omeprazole* (Omeprazole*) 40 Mg Capsule.dr, 40 MG PO DAILY, #30 CAP 06/15/18 [place]-3 Fatty Acids/Fish Oil (Fish Oil 1,000 mg Softgel) 1 Each Capsule, 1 EACH PO DAILY, CAP 06/15/18 Enalapril Maleate* (Vasotec*) 5 Mg Tablet, 5 MG PO DAILY, TAB 06/15/18 Atorvastatin* (Atorvastatin*) 40 Mg Tablet, 40 MG PO QHS, #30 TAB 06/15/18 Aspirin* (Aspirin* EC) 81 Mg Tablet.dr, 81 MG PO DAILY, TAB 06/15/18 Follow-up Plan PCP and cardiology in one week Primary Care Provider Not On Staff Doctor JLUIS CHAO MD Jun 17, 2018 15:27
--- NOTE | 2018-06-17 20:14 | CARRPT ---
DATE OF PROCEDURE: 06/17/2018 TYPE OF PROCEDURE: Lexiscan Cardiolite stress test, electrocardiogram portion. INDICATION: Chest pain, assess for ischemia. BASELINE VITAL SIGNS AND ELECTROCARDIOGRAM: Pulse 73, blood pressure 116/66. Electrocardiogram reve als normal sinus rhythm, rate 73, normal axis, normal intervals, T-wave inversion isolated to lead 3. DESCRIPTION OF PROCEDURE: The patient underwent standard Lexiscan infusion protocol over 10 seconds followed by radiolabeled tracer. The patient's test was stopped due to completion of protocol. Maxi mal achieved blood pressure during the test was 119/70. Maximum heart rate during the test was 101. ELECTROCARDIOGRAM FINDINGS: The patient did not develop any new Lexiscan-induced ST or T-wave change s from baseline abnormalities. No documented PVCs. SYMPTOMS: The patient had complaints of shortness of breath during stress testing which resolved in recovery. IMPRESSION: 1. No Lexiscan-induced ST or T-wave changes from baseline abnormalities diagnostic for cardiac ische gerardo. 2. No complaints of chest pain during stress testing, but positive shortness of breath which resolve d in recovery. 3. No documented premature ventricular contractions. 4. Report of nuclear images to follow in separate dictation. Dictated By: AMEYA FIORE/INGRID Conf#: [id number] DID#: [id number] CC: JLUIS CHAO MD; PADMAJA ASIF MD;*End*
--- NOTE | 2018-06-19 18:19 | RADRPT ---
Vent Rate: 72 bpm RR Interval: 0 msec HI Interval: 186 msec QRS Duration: 82 msec QT Interval: 440 msec QTC Interval: 481 msec P-R-T [place]: 49 - 32 - 42 degrees Normal sinus rhythm Prolonged QT Abnormal ECG Electronically Signed By: Farrukh Desouza
== END 2018-06-17 19:30 | disposition home or self-care (01) ==
LOC: INTOOBSV 02:04 → 6WM 02:04
PROVIDERS: ADMIT Internal Medicine; ATTEND Internal Medicine
DX: R07.89 Other chest pain (principal); Z86.73 Personal history of transient ischemic attack (TIA), and cerebral infarction without residual deficits; I11.0 Hypertensive heart disease with heart failure; I50.9 Heart failure, unspecified
CPT/HCPCS: 78452; 80048; 80053; 80061; 82550; 82553; 83036; 83735; 84100; 84443; 84484; 85025; 93005; 93017; 93306; A9500; A9505; J1650; J2785; Z7500; Z7610; 99217; G0378

== ENCOUNTER → 2018-08-17 | Outpatient (CLI) | payer OTHER ==
[~2018-08-17] MED LIST: ACET-2047 PO; ASPI-817 PO; ATOR40TA68 PO; CHOL500062 PO; ENAL5TAB75 PO; IOHEXOL 100 ML ONE; METOPROLOL (XL) 100 MG TAB PO ONE; METOPROLOL (XL) 50 MG TAB PO PRN; METOPROLOL 100 MG TAB ONE; METOPROLOL 5 MG INJ IV ONE; METOPROLOL 5 MG INJ ONE; NITR0.4T39 SL; NITROGLYCERIN AEROSOL (4.9 GM) ONE; NITROGLYCERIN AEROSOL (4.9 GM) SL ONE; OMEG1CAP17 PO; OMEP40CA6 PO; SOD CHLORIDE 0.9% 100 ML ONE
== END | disposition home or self-care (01) ==
LOC: C/S 08:49
PROVIDERS: ATTEND Internal Medicine
DX: R07.9 Chest pain, unspecified (principal)
CPT/HCPCS: 75571; 75574; Q9967; Z7610

== ENCOUNTER 2018-09-09 06:57 | Day surgery (SDC) | payer OTHER ==
[~2018-09-09] VITALS: Ht 162.6 cm; Wt 90.8 kg
[~2018-09-09 06:57] MED LIST changes: -IOHEXOL 100 ML ONE; -METOPROLOL (XL) 100 MG TAB PO ONE; -METOPROLOL (XL) 50 MG TAB PO PRN; -METOPROLOL 100 MG TAB ONE; -METOPROLOL 5 MG INJ IV ONE; -METOPROLOL 5 MG INJ ONE; -NITROGLYCERIN AEROSOL (4.9 GM) ONE; -NITROGLYCERIN AEROSOL (4.9 GM) SL ONE; -SOD CHLORIDE 0.9% 100 ML ONE
--- NOTE | 2018-09-09 07:51 | PREAC ---
Date/Time of Note Date/Time of Note DATE: 09/09/18 TIME: 07:48 Anesthesia Eval and Record Evaluation Time Pre-Procedure Interview DATE: 09/09/18 TIME: 07:48 Age 58 Sex female NPO: 8 hrs Preoperative diagnosis R/O ASD Planned procedure SULLY Past Medical History Past Medical History: Includes Cardio: HTN, Dyslipidemia, Other (Hx chest pain May 2018: Stress test negative 05/2018; Echo EF 55%, normal wall motion 05/2018; cardiac CT normal 07/2018) Neuro: CVA (HX CVA s/p RIGHT MCA thrombectomy) Surgery & Anesthesia Issues No known issue Meds Anticoagulation: Yes Beta Pavan within 24 hr: No Reason Beta Pavan not given: Pt. not on B-Pavan Reported Medications Acetaminophen* (Acetaminophen*) 650 Mg Tablet, 650 MG PO Q6H PRN for PAIN AND OR ELEVATED TEMP, #30 TAB 06/15/18 Cholecalciferol (Vitamin D3) (Vitamin D3) 5,000 Unit Tab.rapdis, 5000 UNIT PO DAILY 06/15/18 Nitroglycerin* (Nitrostat*) 0.4 Mg Tab.subl, 0.4 MG SL Q5MIN PRN for CHEST PAIN, BOTTLE 06/15/18 Omeprazole* (Omeprazole*) 40 Mg Capsule.dr, 40 MG PO DAILY, #30 CAP 06/15/18 [place]-3 Fatty Acids/Fish Oil (Fish Oil 1,000 mg Softgel) 1 Each Capsule, 1 EACH PO DAILY, CAP 06/15/18 Enalapril Maleate* (Vasotec*) 5 Mg Tablet, 5 MG PO DAILY, TAB 06/15/18 Atorvastatin* (Atorvastatin*) 40 Mg Tablet, 40 MG PO QHS, #30 TAB 06/15/18 Aspirin* (Aspirin* EC) 81 Mg Tablet.dr, 81 MG PO DAILY, TAB 06/15/18 Meds reviewed: Yes Allergies Coded Allergies: Estrogens (Verified Allergy, Intermediate, 06/15/18) honey (Verified Allergy, Intermediate, 06/15/18) peanut (Verified Allergy, Intermediate, 06/15/18) pollen extracts (Verified Allergy, Intermediate, 06/15/18) Allergies Reviewed: Yes Labs/Studies Labs Reviewed: Reviewed by anesthesiologist test: N/A Studies: ECG, CXR Pre-procedure Exam Airway: Adequate mouth opening, Adequate thyromental dist Mallampati: Mallampati II Teeth: Normal Lung: Normal Heart: Normal ASA Physical Status ASA physical status: 2 Emergency: None Planned Anesthetic General/MAC: MAC, TIVA Planned Pain Management Parenteral pain med Pre-operative Attestations Prior to commencing anesthesia and surgery, the patient was re-evaluated, there was verification of: *The patient's identity *The results of appropriate recent lab work and preoperative vital signs *The above evaluation not changing prior to induction *Anesthetic plan, risk benefits, alternative and complications discussed with patient/family; questions answered; patient/family understands, accepts and wishes to proceed. FARRUKH GRANADO Sep 09, 2018 07:51
[2018-09-09] MEDS ORDERED: PROPOFOL 200 MG INJ ONE (07:56)
[2018-09-09] MEDS ORDERED: PROPOFOL 20 ML ONE (07:56)
[2018-09-09 08:17] VITALS: BP 131/80; PULSE 94; RESP 16; Ht 162.6 cm; Wt 90.8 kg
--- NOTE | 2018-09-09 09:48 | PAC ---
Date/Time of Note Date/Time of Note DATE: 09/09/18 TIME: 09:46 Post-Anesthesia Notes Post-Anesthesia Note Last documented vital signs BP 124/87 HR 103 Temp 36.5 rr 16 spo2 99% Activity: WNL Respiratory function: WNL Cardiovascular function: WNL Mental status: Baseline Pain reasonably controlled: Yes Hydration appropriate: Yes Nausea/Vomiting absent: Yes FARRUKH GRANADO Sep 09, 2018 09:48
[2018-09-09 09:55] VITALS: BP 111/69; PULSE 85; RESP 16
--- NOTE | 2018-09-09 19:40 | SP ---
DATE OF PROCEDURE: 09/09/2018 FRAMER: Lara Barnes DO INDICATION: History of recent stroke. ANESTHESIA: Moderate sedation with propofol 250 mcg. CONSCIOUS SEDATION TIME: 20 minutes. DESCRIPTION OF PROCEDURE: Informed consent was obtained after the risks, benefits of procedure and s edation were explained to the patient and her daughter, who translated for her. The patient was plac ed on O2 support and monitored via cardiac monitoring during the entire procedure. Posterior orophar ynx was anesthetized with topical lidocaine and the patient was then sedated with propofol. The hayes sesophageal probe was passed into the esophagus without any difficulty. Multiplanar views of the hea rt were obtained and the probe was removed from the patient's esophagus and airway was suctioned. Th e patient's vital signs were monitored throughout the procedure and the patient remained stable. The patient tolerated the procedure well without any complications. COMPLICATIONS: None. FINDINGS: 1. Normal LV size and function, EF of 60%. 2. Normal RV size and function. 3. Normal left and right atrial sizes, hypermobile interatrial septum. The interatrial septum was v isualized and evaluated with color flow Doppler and agitated saline and there was no evidence of righ t to left shunting. The left atrial appendage was visualized and there was no left atrial appendage thrombus. 4. The mitral valve structure appeared normal. There was no significant mitral stenosis or regurgit ation. 5. Aortic valve structure appeared normal. Aortic valve is trileaflet. There is no significant aor tic regurgitation or stenosis. 6. The tricuspid valve structure appeared normal. There was trace tricuspid regurgitation and no tr icuspid stenosis. 7. The pulmonic valve structure appeared normal. There was trace pulmonic regurgitation and no pulm onic stenosis. 8. Proximal ascending aorta showed no evidence of atheromatous disease. 9. Normal-appearing pericardium with no evidence of pericardial effusion. CONCLUSION: 1. Normal left ventricular systolic function. 2. No evidence of interatrial shunt, negative for patent foramen ovale or atrial septal defect. 3. Hypermobile interatrial septum. 4. No left atrial appendage thrombus. Moderate conscious sedation and total procedure time was 20 minutes. Dictated By: LARA PUENTES/INGRID Conf#: [id number] DID#: [id number]
--- NOTE | 2018-09-10 07:34 | RADRPT ---
Vent Rate: 89 bpm RR Interval: 676 msec MI Interval: 176 msec QRS Duration: 81 msec QT Interval: 386 msec QTC Interval: 469 msec P-R-T [place]: 53 - 26 - 25 degrees Sinus rhythm...normal P axis, V-rate 50- 99 Electronically Signed By: Farrukh Desouza
--- NOTE | 2018-09-10 16:17 | HP ---
Date/Time of Note Date/Time of Note DATE: 09/09/18 TIME: 0830 Assessment/Plan VTE Prophylaxis Pharmacological prophylaxis: NA/contraindicated Pharm contraindication: low risk/ambulating Lines/Catheters IV Catheter Type (from Nrs): Saline Lock Assessment/Plan Assessment/Plan 1. s/p CVA - r/o interatrial shunt - SULLY today, then dc home, f/u in office post procedure Result Diagram: 09/09/18 0807 09/09/18 0807 HPI/ROS Admit Date/Time Admit Date/Time 09/09/18 Hx of Present Illness Date of exam and procedure: 09/09/2018 Patient here for SULLY to evaluate for a PFO/ASD after CVA. She says that she was told that she may have a "hole in her heart". Today she is doing well, no CV complaints. Please see note from my office for more details of history. PMH/Family/Social Past Medical History See scanned note from office Coded Allergies: Estrogens (Verified Allergy, Intermediate, 09/09/18) honey (Verified Allergy, Intermediate, 09/09/18) peanut (Verified Allergy, Intermediate, 09/09/18) pollen extracts (Verified Allergy, Intermediate, 09/09/18) Family History Significant Family History: no pertinent family hx Social History Smoking Status: Never smoker Exam/Review of Systems Vital Signs Vitals Vital Signs Date Temp Pulse Resp B/P (MAP) Pulse Ox O2 O2 Flow FiO2 Time Delivery Rate 09/09/18 98.0 85 16 111/69 96 Room Air 09:55 (83) Intake and Output 09/09/18 09/09/18 09/10/18 1515:00 23:00 07:00 IntakeIntake Total 200 ml BalanceBalance 200 ml MOLLY THOMPSON DO Sep 10, 2018 16:17
== END 2018-09-09 10:48 | disposition home or self-care (01) ==
LOC: SDS 06:57
PROVIDERS: ATTEND Nuclear Medicine Nuclear Cardiology
DX: Q21.1 Atrial septal defect (principal); R07.89 Other chest pain; Z86.73 Personal history of transient ischemic attack (TIA), and cerebral infarction without residual deficits; Z79.82 Long term (current) use of aspirin
CPT/HCPCS: 71045; 80048; 85025; 85610; 85730; 93005; 93312; 93320; 93325; Z7610